=== PATIENT | female | born 1935 ===

== ENCOUNTER 2022-10-20 06:06 | Day surgery (SDC) | payer OTHER ==
[~2022-10-20] VITALS: Ht 157.5 cm; Wt 49.9 kg
[~2022-10-20 06:06] MED LIST: ADULT LOW DOSE81 M1 PO; CARDURA PO; PEPCID PO; TENORMIN25 MG PO; ZESTRIL20 MG PO; ZOCOR20 MG PO
== END 2022-10-20 20:15 | disposition home or self-care (01) ==
LOC: CIR.AMB 06:06
PROVIDERS: ATTEND Orthopaedic Surgery Hand Surgery
DX: S52.532A Colles' fracture of left radius, initial encounter for closed fracture (principal); E11.9 Type 2 diabetes mellitus without complications; E78.00 Pure hypercholesterolemia, unspecified; E78.3 Hyperchylomicronemia; D65 Disseminated intravascular coagulation [defibrination syndrome]; Z20.822 Contact with and (suspected) exposure to COVID-19; Z88.2 Allergy status to sulfonamides
CPT/HCPCS: 25609; 25280; L8690